=== PATIENT | female | born 1970 | race Asian ===

== ENCOUNTER → 2017-05-08 | Outpatient (CLI) | payer OTHER ==
--- NOTE | 2017-05-08 12:13 | RAD ---
EXAM: Pelvic ultrasound HISTORY: Left pelvic/lower quadrant pain with periods. COMPARISON: 07/19/2014. FINDINGS: Sonographic evaluation of the pelvis was performed transabdominally and transvaginally. The uterus is anteverted and measures 10.9 x 8.9 x 7.8 cm. The endometrial stripe measures 14 mm. Multiple solid uterine masses are consistent with fibroids. The largest is exophytic along the posterior aspect of the lower uterine segment and measures 6.5 x 6.1 x 4.8 cm. Others are myometrial or subserosal and measure up to 4.6 x 3.8 cm on the left, 4.1 x 3.3 cm in the fundus, and 5.4 x 5.0 cm inferiorly. There are others of similar size. There is no significant free fluid. The right ovary measures 4.8 x 3.8 x 4.1 cm. It contains a small cyst or dominant follicle with internal echoes that measures 4.0 x 3.6 x 2.6 cm. There is no clear solid component. The left ovary measures 2.5 x 2.3 x 1.7 cm. There is normal Doppler flow bilaterally. IMPRESSION: 1. Multiple uterine fibroids are stable to mildly increased in size since 2013. The largest assess for arthritic posteriorly and measures 6.5 cm. 2. Endometrial thickness 14 mm can be normal in a premenopausal patient. Correlate with the phase of the menstrual cycle. 3. 4.0 cm complicated cyst or large follicle in the right ovary. This is most likely physiologic. A follow up could be performed in 3 months to confirm resolution if there is persistent concern.
== END | disposition home or self-care (01) ==
LOC: US 07:57
PROVIDERS: ATTEND Obstetrics & Gynecology
DX: D25.9 Leiomyoma of uterus, unspecified (principal); N83.291 Other ovarian cyst, right side
CPT/HCPCS: 76830; 76856

== ENCOUNTER → 2017-06-09 | Outpatient (CLI) | payer OTHER ==
--- NOTE | 2017-06-09 11:49 | RAD ---
DATE: 06/09/2017 EXAM: MAMMO [facility] SCREENING BILATERAL HISTORY: Routine screening. COMPARISON: 06/07/2016 and 04/06/2015 This study was interpreted with the benefit of Computerized Aided Detection (CAD). FINDINGS: The parenchymal pattern is stable. No mass or malignant appearing microcalcifications are seen. The axillae are unremarkable. Breast Density: HETERO The breast parenchyma is heterogeneously dense, which could reduce sensitivity of mammography. Breast parenchyma level C. IMPRESSION: No mammographic features suspicious for malignancy are identified. BI-RADS CATEGORY: 1 NEGATIVE RECOMMENDED FOLLOW-UP: 12M 12 MONTH FOLLOW-UP PQRS compliance statement: Patient information was entered into a reminder system with a target due date 06/09/2018 for the next mammogram. Mammography is a sensitive method for finding small breast cancers, but it does not detect them all and is not a substitute for careful clinical examination. A negative mammogram does not negate a clinically suspicious finding and should not result in delay in biopsying a clinically suspicious abnormality. "Our facility is accredited by the [employer] Mammography Program."
== END | disposition home or self-care (01) ==
LOC: MAMMO 08:06
PROVIDERS: ATTEND Obstetrics & Gynecology
DX: Z12.31 Encounter for screening mammogram for malignant neoplasm of breast (principal)
CPT/HCPCS: 77063; G0202; 77067